=== PATIENT | female | born 1960 | race Caucasian/White ===

== ENCOUNTER 2020-11-17 16:27 | Outpatient (REF) | payer BC, SELFPAY ==
--- NOTE | ~2020-11-17 | CT_ITS ---
EXAMINATION: CT CHEST SCREENING CLINICAL INFORMATION: Lung cancer screening COMPARISON: Previous chest CT July 2019 TECHNIQUE: Multidetector volumetric CT imaging of the chest is performed without contrast using low dose technique. Additional 2D coronal and sagittal reformatted images and axial 3D maximum intensity projection (MIP) images are generated on the CT workstation. This CT examination was performed using dose optimization techniques as appropriate, variously including the following: *Automated exposure control *Adjustment of mA and/or kV according to patient size (this includes techniques or standardized protocols for targeted exams where dose is matched to indication/reason for exam; i.e. extremities or head) *Use of iterative reconstruction technique DLP: 55 mGy-cm FINDINGS: LUNGS: The small right pulmonary nodules are stable. There is new subsegmental atelectasis or linear scarring seen in the apical posterior segment of the left upper lobe, for example axial image 152 series 5. There is a new heterogeneous or semisolid left upper lobe nodule measuring 4 mm in the anterior segment of the left upper lobe axial image 2:15 series 5, coronal reconstructed image 20 sagittal reconstructed image 29. MEDIASTINUM: There is mild coronary artery calcification. There is evidence of atherosclerotic disease with calcification of the aorta. Mediastinum is otherwise normal. PLEURA: There is no pleural effusion. No pleural mass or thickening. AXILLA: No lymphadenopathy. UPPER ABDOMEN: Unremarkable OSSEOUS STRUCTURES: There are degenerative changes of the spine. There are postsurgical changes to the lower cervical spine. CT/CT lung screening IMPRESSION: Stable small right pulmonary nodules. New 4 mm heterogeneous or semisolid left upper lobe nodule. New linear scarring or subsegmental atelectasis in the left upper lobe. Atherosclerotic disease. ASSESSMENT: Lung-RADS category 2: Benign RECOMMENDATION: Annual low-dose chest CT follow-up recommended.
== END 2020-11-17 16:28 | disposition home or self-care (01) ==
LOC: HO.CT 16:27
PROVIDERS: PCP Internal Medicine; Visit Provider Physician Assistant Medical
DX: Z12.2 Encounter for screening for malignant neoplasm of respiratory organs (principal); Z87.891 Personal history of nicotine dependence
CPT/HCPCS: 71271

== ENCOUNTER → 2020-11-22 15:27 | Outpatient (BNVA) | payer BC, SELFPAY | PROVIDERS: PCP Internal Medicine; Visit Provider Hospitalist ==

== ENCOUNTER 2020-12-21 13:39 | Outpatient (REF) | payer BC, SELFPAY ==
--- NOTE | 2020-12-21 14:52 | PFT_ITS ---
INDICATION: Asthma/COPD. SPIROMETRY: The FEV1 to FVC 69% with an FEV1 of 2.71 L, which is 91% predicted, and an FVC of 3.95 L, which is 102% predicted. Post bronchodilator shows significant improvement of the FEV1 by 14%. The maximum voluntary ventilation 98% predicted. LUNG VOLUMES: Total lung capacity 118% predicted and residual volume 134% predicted. DIFFUSION CAPACITY: DLCO 59% predicted. COMPARISONS: None available. INTERPRETATION: There is an obstructive ventilatory defect consistent with mild COPD. There was a significant response to bronchodilators noted and evidence of small airways disease. Maximum voluntary ventilation within normal limits. The patient had a trend of hyperinflation and significant air trapping due to the COPD. In addition to that, there is a moderate diffusion impairment likely secondary to emphysema and other parenchymal lung conditions should be considered. Clinical correlation warranted. MD DYLAN Lopez/NOY / [id number]
== END 2020-12-21 13:40 | disposition home or self-care (01) ==
LOC: HO.RESP 13:39
PROVIDERS: PCP Internal Medicine; Visit Provider Hospitalist
DX: J44.9 Chronic obstructive pulmonary disease, unspecified (principal)
CPT/HCPCS: 94060; 94727; 94729

== ENCOUNTER 2022-02-26 15:28 | Outpatient (REF) | payer BC, SELFPAY ==
--- NOTE | ~2022-02-26 | CT_ITS ---
EXAMINATION: CT CHEST SCREENING CLINICAL INFORMATION: CT chest 11/17/2020 COMPARISON: CT chest 11/17/2020 TECHNIQUE: Multidetector volumetric CT imaging of the chest is performed without contrast using low dose technique. Additional 2D coronal and sagittal reformatted images and axial 3D maximum intensity projection (MIP) images are generated on the CT workstation. This CT examination was performed using dose optimization techniques as appropriate, variously including the following: *Automated exposure control *Adjustment of mA and/or kV according to patient size (this includes techniques or standardized protocols for targeted exams where dose is matched to indication/reason for exam; i.e. extremities or head) *Use of iterative reconstruction technique DLP: 55 mGy-cm FINDINGS: LUNGS: The lungs are well-expanded and clear of acute pneumonic consolidation. There is a 4 mm of the right lower lobe, axial image 272/6, new. Ground-glass nodule left upper lobe anterior segment measures 7 mm x 8 mm axial image 225/6, previously measured 4 mm and is slightly larger. There is no change in the micronodules from the previous exam. There is a 3 mm nodule in the right lower lobe anterior segment adjacent to the major fissure image 343/6. Minimal scarring/atelectasis of the posterior segment, left upper lobe is stable. MEDIASTINUM: The thyroid lobes are symmetrical and normal. The central trachea and the bronchi are widely patent. The heart size and the great vessels are of normal caliber. There is no pericardial effusion. No abnormal size mediastinal or hilar lymph nodes are seen. PLEURA: There is no pleural effusion. No pleural mass or thickening. AXILLA: No lymphadenopathy. UPPER ABDOMEN: Visualized liver, spleen, pancreas and bilateral adrenal glands are unremarkable. OSSEOUS STRUCTURES: No lytic or sclerotic process seen. CT/CT lung screening IMPRESSION: New 4 mm nodule right lower lobe. The ground-glass nodule of the left upper lobe has slightly increased in size. The rest of the micronodules seen previously and the 3 mm nodule right lower lobe adjacent to the major fissure, are stable. No abnormal mediastinal lymphadenopathy ASSESSMENT: Lung-RADS category 2: Benign RECOMMENDATION: Low-dose annual CT chest.
== END 2022-02-26 15:29 | disposition home or self-care (01) ==
LOC: HO.CT 15:28
PROVIDERS: Visit Provider Physician Assistant Medical
DX: Z12.2 Encounter for screening for malignant neoplasm of respiratory organs (principal); Z87.891 Personal history of nicotine dependence
CPT/HCPCS: 71271

== ENCOUNTER → 2022-04-06 10:20 | Outpatient (BNVA) | payer BC, SELFPAY | PROVIDERS: PCP Internal Medicine; Visit Provider Surgery | DX: R91.8 Other nonspecific abnormal finding of lung field (principal) | CPT/HCPCS: 99202 ==

== ENCOUNTER 2022-05-29 15:57 | Outpatient (REF) | payer BC, SELFPAY ==
--- NOTE | ~2022-05-29 | CT_ITS ---
EXAMINATION: CT CHEST SCREENING CLINICAL INFORMATION: Former smoker. Quit 5 years ago. 40 pack year history. COMPARISON: Previous CT most recent February 2022 TECHNIQUE: Multidetector volumetric CT imaging of the chest is performed without contrast using low dose technique. Additional 2D coronal and sagittal reformatted images and axial 3D maximum intensity projection (MIP) images are generated on the CT workstation. This CT examination was performed using dose optimization techniques as appropriate, variously including the following: *Automated exposure control *Adjustment of mA and/or kV according to patient size (this includes techniques or standardized protocols for targeted exams where dose is matched to indication/reason for exam; i.e. extremities or head) *Use of iterative reconstruction technique DLP: 57 mGy-cm FINDINGS: LUNGS: There is evidence of emphysema. There is a 7 x 12 mm groundglass attenuation left upper lobe nodule axial image 238 series 5. This is increased from 7 x 8 mm on most recent exam February 2022 and 4 mm on older exam from 2020. Other solid pulmonary nodules are stable, largest measuring 4 mm in the right lower lobe axial image 296 series 5. No new pulmonary nodule. No endobronchial or endotracheal lesion. Linear scarring or dependent atelectasis in the posterior segment of the left upper lobe axial image 166 series 5 stable. MEDIASTINUM: The mediastinum is normal. CORONARY ARTERY CALCIFICATION: None visualized on this study. PLEURA: There is no pleural effusion. No pleural mass or thickening. AXILLA: No lymphadenopathy. UPPER ABDOMEN: Unremarkable OSSEOUS STRUCTURES: Degenerative changes of the thoracic spine. Postsurgical changes to the lower cervical spine. CT/CT lung screen follow up IMPRESSION: Mild emphysema. Gradually increasing groundglass attenuation left upper lobe nodule now measuring 7 x 12 mm. Other smaller solid pulmonary nodules are stable. Mild coronary artery calcification. ASSESSMENT: Lung-RADS category 4. Suspicious. RECOMMENDATION: Low-dose chest CT follow-up in 3 months recommended.
== END 2022-05-29 15:58 | disposition home or self-care (01) ==
LOC: HO.CT 15:57
PROVIDERS: Visit Provider Physician Assistant Medical
DX: R91.8 Other nonspecific abnormal finding of lung field (principal)
CPT/HCPCS: 71250

== ENCOUNTER → 2022-06-15 10:07 | Outpatient (BNVA) | payer BC, SELFPAY | PROVIDERS: PCP Internal Medicine; Visit Provider Surgery | DX: R91.8 Other nonspecific abnormal finding of lung field (principal) | CPT/HCPCS: 99212 ==

== ENCOUNTER → 2022-11-27 13:59 | Outpatient (BNVA) | payer BC, SELFPAY | PROVIDERS: PCP Internal Medicine; Visit Provider Hospitalist | DX: Z13.89 Encounter for screening for other disorder (principal) ==

== ENCOUNTER 2023-04-26 15:19 | Outpatient (REF) | payer BC, SELFPAY ==
--- NOTE | 2023-04-26 15:58 | PFT_ITS ---
Forced vital capacity is 94%, FEV1 72%. FEV1/FVC ratio is 60. TRA82-58 36% and MVV 86%. Post bronchodilator therapy, there is marked improvement in FVC, FEV1, and MLN14-18 consistent with complete reversibility of the obstructive component. Total lung capacity 113%. Residual volume 130%. Diffusion capacity 52% CONCLUSION: Moderately severe obstructive airway disorder. There is significant improvement after bronchodilator therapy resulting in complete reversibility. These findings are consistent with bronchial asthma/COPD overlap syndrome. Clinical correlation recommended. MD SINTIA Higuera/MODL / [id number]
== END 2023-04-26 15:20 | disposition home or self-care (01) ==
LOC: HO.RESP 15:19
PROVIDERS: PCP Internal Medicine; Visit Provider Hospitalist
DX: J41.0 Simple chronic bronchitis (principal)
CPT/HCPCS: 94010; 94727; 94729

== ENCOUNTER → 2023-04-26 15:58 | Outpatient (BNV) | payer BC, SELFPAY | PROVIDERS: PCP Internal Medicine; Visit Provider Internal Medicine | DX: J43.9 Emphysema, unspecified (principal) | CPT/HCPCS: 94060; 94727; 94729 ==

== ENCOUNTER 2023-05-31 10:38 | Outpatient (AMB) | payer BC, SELFPAY ==
[2023-05-31 10:42] VITALS: PULSE 68; O2SAT 96; BMI 29.0
--- NOTE | 2023-05-31 10:42 | A.OFFVIS_ITS ---
Intake Vital Signs 05/31/23 10:42 Height 5 ft 8 in Weight 191 lb 1 oz BMI 29.0 Pulse 68 Pulse Source Pulse Oximeter Pulse Oximetry (%) 96 Oxygen Delivery Method Room Air Intake Visit Reasons: COPD Registered Nurses Required: No Allergies benzoin Allergy (Unknown, Uncoded 05/31/23 10:43) blisters doxycycline Allergy (Unknown, Uncoded 05/31/23 10:43) rash sporonox Allergy (Unknown, Uncoded 05/31/23 10:43) rash steri strip Allergy (Unknown, Uncoded 05/31/23 10:43) blisters HPI HPI Comments History of Present Illness Details The patient is a 63 y/o woman with a history of COPD. Apparently back in 2018 she developed worsening respiratory symptoms. She was given 3 courses of prednisone for COPD exacerbation. Then she was admitted to [facility]. After that she was evaluated by local manager fashion. She had pulmonary function studies demonstrating a mild obstructive ventilatory defect. She also had a mild diffusion impairment. She was placed initially on Symbicort and Spiriva. She does use the medicine at least once a day. She does get some hoarseness with the inhalers. We talked about an AeroChamber. Subsequently after that she did have daytime drowsiness and she underwent a sleep study. She did try CPAP but it was hard for her to tolerate and therefore she failed CPAP. She had a repeat sleep study and then ultimately had an oral appliance. On repeat study with 03/22/2022 the patient is here for a pulmonary follow-up visit. The patient overall continues to do well. She still has underlying dyspnea on exertion. She has been using Symbicort and she could not tolerate the Spiriva. The patient still would like to try to optimize her respiratory therapy. Therefore will send her breztri to the pharmacy. I also will give her a coupon card to see if that she can use this to decrease her copays. The patient also is taking part of the lung cancer screening program. We did look at her CT scan. It appears that she does have a interval growth in her ground-glass pulmonary nodule. The nodule appears to be completely homogeneous ground-glass. based on the fact that the nodule increase and she is taking part of the lung cancer screening program will go ahead and present throughout the conference. Will probably have to change her RADS score on her CT scan. Otherwise patient is without any complaints will likely follow up with a CT scan that are earlier time. 11/27/2022 The patient is here for a pulmo nary follow up visit. Overall the patient is doing well. Still has dyspnea on exertion. She feels is related to her weight. Her last PFTs demonstrate mild COPD. In addition, she did have a second opinion at [facility] thoracic surgery for her GG pulmonary nodules and she will like to f/u there if she needs surgery. Therefore, I will reorder her CT chest to be done at [facility] at the [facility]. Has been responding good to the Breztri. 05/31/2023 the patient is here for a pulm onary follow-up visit. The patient overall is doing well. She still having dyspnea on exertion. [id number] severity. We did review her PFTs demonstrating mild COPD. The patient will benefit from pulmonary a bili taken. I will put an order in. Although her work may get in the way of the in-person pulmonary rehabilitation. She does respond well to the inhalers. She will continue it at this time. She does need a rescue inhaler and I will make when available for her. The patient understands she has a significant response to bronchodilators and likely has an asthma phenotype. Patient also had a CT scan of the chest done at [facility] back in November 2022 demonstrating the persistent ground-glass nodular density in the left hemithorax. The patient is scheduled to have a repeat CT scan now on the fall. She will follow-up with the surgeon regarding that nodule. I am hopeful that the nodule either subsides or stay stable and that she does not need any further intervention. However, if the nodule becomes more subsolid or increases in size it should be resected. She does have the lung capacity to tolerate surgery based on her PFTs. She still has some daytime drowsiness. We had ordered a sleep study but she opted not having it at this point will going to go ahead and cancel it. She can continue with positional sleep therapy. PFSH Medical History COPD (chronic obstructive pulmonary disease) SULEIMAN (obstructive sleep apnea) Personal history of nicotine dependence Pulmonary nodules Vaping nicotine dependence, tobacco product Family History Father Lung cancer Social History Patient Tobacco Use Status: Former Tobacco user Tobacco use type: Cigarette Years Smoked: 30 Years Review of Systems Const Denies night sweats and Reports weight gain ENT Denies change in voice, Denies lip swelling, Denies mouth pain, Reports nasal congestion, Reports nasal discharge and Denies tongue swelling Card Denies chest pain and Reports dyspnea on exertion Resp Reports cough and Reports dyspnea on exertion GI Denies abdominal pain Musc Denies no additional complaints Neuro Denies Neuro-related abnormal movements Psych Denies no additional complaints Jose/Lymph Denies easy bleeding and Denies lymphadenopathy Aller/Immun Denies lip swelling and Denies tongue swelling Physical Exam Vital Signs: Last Vital Signs Pulse 68 05/31/23 10:42 Pulse Ox 96 05/31/23 10:42 Oxygen Delivery Method Room Air 05/31/23 10:42 BMI result Body Mass Index 29.0 Const General: alert Neck Neck: Yes normal visual inspection, Yes full ROM and Yes no lymphadenopathy Chest Chest palpation & inspection: normal inspection of the chest Resp Auscultation: diminished lung sounds Cardio Rate: regular rate Rhythm: regular rhythm Heart sounds: S1 normal heart sound present and S2 normal heart sound present GI Palpation (GI): Soft to palpation and nontender Auscultation: normal bowel sounds Skin General skin exam: rashes and/or lesions noted Extrem General: Yes no clubbing, cyanosis or edema Assessment & Plan Assessment & Plan (1) COPD (chronic obstructive pulmonary disease): Code(s): J44.9 - Chronic obstructive pulmonary disease, unspecified Qualifiers: COPD type: chronic bronchitis Chronic bronchitis type: simple Qualified Code(s): J41.0 - Simple chronic bronchitis (2) Pulmonary nodules: Code(s): R91.8 - Other nonspecific abnormal finding of lung field Plan continue Breztri MIKHAIL as needed CT chest at [facility] in the next few weeks F/U with Dr Ramires Pulmonary rehab F/U 6 months Orders: Orders Pulmonary Rehab Today J44.9 - Chronic obstructive pulmonary disease, unspecified Medications: Refilled albuterol sulfate 90 mcg/actuation 2 inhalations inhalation Q6H 30 days PRN 18 grams 12RF shortness of breath or wheezing J44.9 - Chronic obstructive pulmonary disease, unspecified Quality Reporting (2019) Adult ([facility] 138///) Smoking risk assessment performed?: Yes (Vaping) Patient Tobacco Use Status: Former Tobacco user Coding Level of Care Code Est Pt Level 4 (90574) Diagnoses Simple chronic bronchitis J41.0 COPD type: chronic bronchitis Chronic bronchitis type: simple Pulmonary nodules R91.8 Time Spent (min) 17
== END 2023-05-31 11:03 | disposition home or self-care (01) ==
PROVIDERS: PCP Internal Medicine; Visit Provider Hospitalist
DX: J41.0 Simple chronic bronchitis (principal); R91.8 Other nonspecific abnormal finding of lung field
CPT/HCPCS: 99214

== ENCOUNTER → 2023-05-31 10:38 | Outpatient (BNVA) | payer BC, SELFPAY | PROVIDERS: PCP Internal Medicine; Visit Provider Hospitalist | DX: J41.0 Simple chronic bronchitis (principal) ==

== ENCOUNTER 2024-01-10 11:23 | Outpatient (AMB) | payer BC, SELFPAY ==
--- NOTE | 2024-01-10 11:24 | MHC.OFFVIS ---
Vital Signs 01/10/24 11:25 Height 5 ft 8 in Weight 190 lb BMI 28.9 Pulse 66 Pulse Source Pulse Oximeter Pulse Oximetry (%) 97 Oxygen Delivery Method Room Air Intake Visit Reasons: copd [employer] Required: No Allergies benzoin Allergy (Unknown, Uncoded 01/10/24 11:26) blisters doxycycline Allergy (Unknown, Uncoded 01/10/24 11:26) rash sporonox Allergy (Unknown, Uncoded 01/10/24 11:26) rash steri strip Allergy (Unknown, Uncoded 01/10/24 11:26) blisters HPI Comments Details: The patient is a 63 y/o woman with a history of COPD. Apparently back in 2018 she developed worsening respiratory symptoms. She was given 3 courses of prednisone for COPD exacerbation. Then she was admitted to [facility]. After that she was evaluated by local mold sander. She had pulmonary function studies demonstrating a mild obstructive ventilatory defect. She also had a mild diffusion impairment. She was placed initially on Symbicort and Spiriva. She does use the medicine at least once a day. She does get some hoarseness with the inhalers. We talked about an AeroChamber. Subsequently after that she did have daytime drowsiness and she underwent a sleep study. She did try CPAP but it was hard for her to tolerate and therefore she failed CPAP. She had a repeat sleep study and then ultimately had an oral appliance. On repeat study with 03/22/2022 the patient is here for a pulmonary follow-up visit. The patient overall continues to do well. She still has underlying dyspnea on exertion. She has been using Symbicort and she could not tolerate the Spiriva. The patient still would like to try to optimize her respiratory therapy. Therefore will send her breztri to the pharmacy. I also will give her a coupon card to see if that she can use this to decrease her copays. The patient also is taking part of the lung cancer screening program. We did look at her CT scan. It appears that she does have a interval growth in her ground-glass pulmonary nodule. The nodule appears to be completely homogeneous ground-glass. based on the fact that the nodule increase and she is taking part of the lung cancer screening program will go ahead and present throughout the conference. Will probably have to change her RADS score on her CT scan. Otherwise patient is without any complaints will likely follow up with a CT scan that are earlier time. 11/27/2022 The patient is here for a pulmonary follow up visit. Overall the patient is doing well. Still has dyspnea on exertion. She feels is related to her weight. Her last PFTs demonstrate mild COPD. In addition, she did have a second opinion at [facility] thoracic surgery for her GG pulmonary nodules and she will like to f/u there if she needs surgery. Therefore, I will reorder her CT chest to be done at [facility] at the [facility] center. Has been responding good to the Breztri. 05/31/2023 the patient is here for a pulmonary follow-up visit. The patient overall is doing well. She still having dyspnea on exertion. [id number]-mr-mqsubcrq severity. We did review her PFTs demonstrating mild COPD. The patient will benefit from pulmonary a bili taken. I will put an order in. Although her work may get in the way of the in-person pulmonary rehabilitation. She does respond well to the inhalers. She will continue it at this time. She does need a rescue inhaler and I will make when available for her. The patient understands she has a significant response to bronchodilators and likely has an asthma phenotype. Patient also had a CT scan of the chest done at [facility] back in November 2022 demonstrating the persistent ground-glass nodular density in the left hemithorax. The patient is scheduled to have a repeat CT scan now on the fall. She will follow-up with the surgeon regarding that nodule. I am hopeful that the nodule either subsides or stay stable and that she does not need any further intervention. However, if the nodule becomes more subsolid or increases in size it should be resected. She does have the lung capacity to tolerate surgery based on her PFTs. She still has some daytime drowsiness. We had ordered a sleep study but she opted not having it at this point will going to go ahead and cancel it. She can continue with positional sleep therapy. 01/10/2024 the patient is here for pulmonary follow-up visit. He continues exertion. Ylfk-et-utkngulp severity. Although she does not use her inhaler as prescribed. She needs to start using at least in the morning to be able to get further bronchodilation. We did review her PFTs demonstrating significant response to bronchodilators and explained to her the importance of doing so to try due improve her exercise capacity. In addition to that she did have a CT scan of the chest at [facility] back in 06/17/2023 demonstrating that the ground-glass opacity that she had component appreciated. She is due for repeat CT scan 06/17/2024 [facility]. I which point she follow-up with the thoracic surgeon. [facility] Medical History COPD (chronic obstructive pulmonary disease) SULEIMAN (obstructive sleep apnea) Personal history of nicotine dependence Pulmonary nodules Vaping nicotine dependence, tobacco product Family History Father Lung cancer Social History Patient Tobacco Use Status: Former Tobacco user Tobacco use type: Cigarette Years Smoked: 30 Years Review of Systems Const Denies night sweats and Reports weight gain ENT Denies change in voice, Denies lip swelling, Denies mouth pain, Reports nasal congestion, Reports nasal discharge and Denies tongue swelling Card Denies chest pain and Reports dyspnea on exertion Resp Reports cough, Reports dyspnea on exertion and Reports wheezing GI Denies abdominal pain Musc Denies no additional complaints Neuro Denies Neuro-related abnormal movements Psych Denies no additional complaints Jose/Lymph Denies easy bleeding and Denies lymphadenopathy Aller/Immun Denies lip swelling, Denies tongue swelling and Reports wheezing Physical Exam Vital Signs: Last Vital Signs Pulse 66 01/10/24 11:25 Pulse Ox 97 01/10/24 11:25 Oxygen Delivery Method Room Air 01/10/24 11:25 BMI result Body Mass Index 28.9 Const General: alert Neck Neck: Yes normal visual inspection, Yes full ROM and Yes no lymphadenopathy Chest Chest palpation & inspection: normal inspection of the chest Resp Effort & Inspection: prolonged expiratory phase Auscultation: rhonchi and diminished lung sounds Cardio Rate: regular rate Rhythm: regular rhythm Heart sounds: S1 normal heart sound present and S2 normal heart sound present GI Palpation (GI): Soft to palpation and nontender Auscultation: normal bowel sounds Skin General skin exam: rashes and/or lesions noted Extrem General: Yes no clubbing, cyanosis or edema Quality Reporting (2019) Adult ([facility] 138//) Smoking risk assessment performed?: Yes (Vaping) Patient Tobacco Use Status: Former Tobacco user Assessment & Plan Assessment & Plan (1) COPD (chronic obstructive pulmonary disease): Code(s): J44.9 - Chronic obstructive pulmonary disease, unspecified Category: Medical Qualifiers: COPD type: chronic bronchitis Chronic bronchitis type: simple Qualified Code(s): J41.0 - Simple chronic bronchitis (2) Pulmonary nodules: Code(s): R91.8 - Other nonspecific abnormal finding of lung field Category: Medical Plan continue Coy ELIZONDO as needed CT chest at [facility] in 06/21 F/U with Dr Ramires Pulmonary rehab F/U 6-8 months Coding Level of Care Code Est Pt Level 4 (48274) Diagnoses Simple chronic bronchitis J41.0 COPD type: chronic bronchitis Chronic bronchitis type: simple Pulmonary nodules R91.8 Time Spent (min) 17
[2024-01-10 11:25] VITALS: PULSE 66; O2SAT 97; BMI 28.9
== END 2024-01-10 11:52 | disposition home or self-care (01) ==
PROVIDERS: PCP Internal Medicine; Visit Provider Hospitalist
DX: J41.0 Simple chronic bronchitis (principal); R91.8 Other nonspecific abnormal finding of lung field
CPT/HCPCS: 99214

== ENCOUNTER → 2024-01-10 11:23 | Outpatient (BNVA) | payer BC, SELFPAY | PROVIDERS: PCP Internal Medicine; Visit Provider Hospitalist ==

== ENCOUNTER 2024-10-30 11:07 | Outpatient (AMB) | payer BC, SELFPAY ==
[2024-10-30 11:15] VITALS: BP 134/82; PULSE 73; O2SAT 97; BMI 30.3
--- NOTE | 2024-10-30 11:15 | A.OFFVIS_ITS ---
Vital Signs 10/30/24 11:15 Height 5 ft 8 in Weight 199 lb 8.293 oz BMI 30.3 BP 134/82 Blood Pressure Location Rt brachial Position Sitting Pulse 73 Pulse Source Pulse Oximeter Pulse Oximetry (%) 97 Oxygen Delivery Method Room Air Intake Visit Reasons: COPD Allergies benzoin Allergy (Unknown, Uncoded 01/10/24 11:26) blisters doxycycline Allergy (Unknown, Uncoded 01/10/24 11:26) rash sporonox Allergy (Unknown, Uncoded 01/10/24 11:26) rash HPI Comments Details: The patient is a 64 y/o woman with a history of COPD. Apparently back in 2018 she developed worsening respiratory symptoms. She was given 3 courses of prednisone for COPD exacerbation. Then she was admitted to [facility]. After that she was evaluated by local valve inserter. She had pulmonary function studies demonstrating a mild obstructive ventilatory defect. She also had a mild diffusion impairment. She was placed initially on Symbicort and Spiriva. She does use the medicine at least once a day. She does get some hoarseness with the inhalers. We talked about an AeroChamber. Subsequently after that she did have daytime drowsiness and she underwent a sleep study. She did try CPAP but it was hard for her to tolerate and therefore she failed CPAP. She had a repeat sleep study and then ultimately had an oral appliance. On repeat study with 03/22/2022 the patient is here for a pulmonary follow-up visit. The patient overall continues to do well. She still has underlying dyspnea on exertion. She has been using Symbicort and she could not tolerate the Spiriva. The patient still would like to try to optimize her respiratory therapy. Therefore will send her breztri to the pharmacy. I also will give her a coupon card to see if that she can use this to decrease her copays. The patient also is taking part of the lung cancer screening program. We did look at her CT scan. It appears that she does have a interval growth in her ground-glass pulmonary nodule. The nodule appears to be completely homogeneous ground-glass. based on the fact that the nodule increase and she is taking part of the lung cancer screening program will go ahead and present throughout the conference. Will probably have to change her RADS score on her CT scan. Otherwise patient is without any complaints will likely follow up with a CT scan that are earlier time. 11/27/2022 The patient is here for a pulmonary follow up visit. Overall the patient is doing well. Still has dyspnea on exertion. She feels is related to her weight. Her last PFTs demonstrate mild COPD. In addition, she did have a second opinion at [facility] thoracic surgery for her GG pulmonary nodules and she will like to f/u there if she needs surgery. Therefore, I will reorder her CT chest to be done at [facility] at the [facility]. Has been responding good to the Breztri. 05/31/2023 the patient is here for a pulmonary follow-up visit. The patient overall is doing well. She still having dyspnea on exertion. Efex-fe-zhjbpqcm severity. We did review her PFTs demonstrating mild COPD. The patient will benefit from pulmonary a bili taken. I will put an order in. Although her work may get in the way of the in-person pulmonary rehabilitation. She does respond well to the inhalers. She will continue it at this time. She does need a rescue inhaler and I will make when available for her. The patient understands she has a significant response to bronchodilators and likely has an asthma phenotype. Patient also had a CT scan of the chest done at [facility] back in November 2022 demonstrating the persistent ground-glass nodular density in the left hemithorax. The patient is scheduled to have a repeat CT scan now on the fall. She will follow-up with the surgeon regarding that nodule. I am hopeful that the nodule either subsides or stay stable and that she does not need any further intervention. However, if the nodule becomes more subsolid or increases in size it should be resected. She does have the lung capacity to tolerate surgery based on her PFTs. She still has some daytime drowsiness. We had ordered a sleep study but she opted not having it at this point will going to go ahead and cancel it. She can continue with positional sleep therapy. 01/10/2024 the patient is here for pulmonary follow-up visit. He continues exertion. Ymzq-hm-lgkqjhjt severity. Although she does not use her inhaler as prescribed. She needs to start using at least in the morning to be able to get further bronchodilation. We did review her PFTs demonstrating significant response to bronchodilators and explained to her the importance of doing so to try due improve her exercise capacity. In addition to that she did have a CT scan of the chest at [facility] back in 06/17/2023 demonstrating that the ground-glass opacity that she had component appreciated. She is due for repeat CT scan 06/17/2024 [facility]. I which point she follow-up with the thoracic surgeon. 10/30/2024 the patient is here for a pulmonary follow-up visit. She has been sick now for a couple weeks. Started like a viral syndrome and now she has had this cough that just will not go away. She sometimes expectorating some yellow phlegm. Although is difficult for her to do so. She has continued to use her respiratory inhalers with only partial improvement of her symptoms. Denies any fevers or chills. She does have some rhonchi and wheezing on exam. Her cardiac exam is stable. The patient will go ahead and continue her respiratory therapy. She has an old nebulizer and I did provide her tubing in order for her to be able to use her nebulizer to help her with her COPD exacerbation. In the meantime will go ahead and treat her for an acute bronchitis infection. She did have a CT scan of the chest in May 2024 which is reassuring with a did measure the ground-glass nodular density in the left upper lobe has decreased in size some. Otherwise still needs follow-up and she is scheduled to have a repeat CAT scan 05/30/2025. Will plan to follow-up in a year's time. If she has any issues prior to that she will call for an earlier assessment. PFSH Medical History COPD (chronic obstructive pulmonary disease) SULEIMAN (obstructive sleep apnea) Personal history of nicotine dependence Pulmonary nodules Vaping nicotine dependence, tobacco product Family History Father Lung cancer Social History Patient Tobacco Use Status: Former Tobacco user Tobacco use type: Cigarette Years Smoked: 30 Years Review of Systems Const Denies night sweats and Reports weight gain ENT Denies change in voice, Denies lip swelling, Denies mouth pain, Reports nasal congestion, Reports nasal discharge and Denies tongue swelling Card Denies chest pain and Reports dyspnea on exertion Resp Reports cough, Reports dyspnea on exertion and Reports wheezing GI Denies abdominal pain Musc Denies no additional complaints Neuro Denies Neuro-related abnormal movements Psych Denies no additional complaints Jose/Lymph Denies easy bleeding and Denies lymphadenopathy Aller/Immun Denies lip swelling, Denies tongue swelling and Reports wheezing Physical Exam Vital Signs: Last Vital Signs Pulse 73 10/30/24 11:15 BP 134/82 10/30/24 11:15 Pulse Ox 97 10/30/24 11:15 Oxygen Delivery Method Room Air 10/30/24 11:15 BMI result Body Mass Index 30.3 Const General: alert Neck Neck: Yes normal visual inspection, Yes full ROM and Yes no lymphadenopathy Chest Chest palpation & inspection: normal inspection of the chest Resp Effort & Inspection: prolonged expiratory phase Auscultation: diminished lung sounds Cardio Rate: regular rate Rhythm: regular rhythm Heart sounds: S1 normal heart sound present and S2 normal heart sound present GI Palpation (GI): Soft to palpation and nontender Auscultation: normal bowel sounds Skin General skin exam: rashes and/or lesions noted Extrem General: Yes no clubbing, cyanosis or edema Assessment & Plan Assessment & Plan (1) COPD (chronic obstructive pulmonary disease): Code(s): J44.9 - Chronic obstructive pulmonary disease, unspecified Category: Medical Qualifiers: COPD type: COPD with acute exacerbation Qualified Code(s): J44.1 - Chronic obstructive pulmonary disease with (acute) exacerbation (2) Pulmonary nodules: Code(s): R91.8 - Other nonspecific abnormal finding of lung field Category: Medical (3) Tracheobronchitis: Code(s): J40 - Bronchitis, not specified as acute or chronic Category: Medical Plan Zpack Prednisone taper Cough medicine continue Breztri MIKHAIL as needed CT chest at [facility] in 06/22 F/U with Dr Ramires Pulmonary rehab F/U 2-3 months Medications: New prednisone PO daily; Take 2 tabs daily x 5 days, then 1 tablet daily x 5 days 15 tabs 0RF 10 days albuterol sulfate 2.5 mg (3 mL) inhalation Q6H PRN 180 mL 11RF shortness of doreen ath or wheezing 30 days azithromycin 500 mg PO DAILY 5 tabs 0RF 5 days Refilled albuterol sulfate 90 mcg/actuation 2 inhalations inhalation Q6H PRN 18 grams 11RF shortness of breath or wheezing 30 days J44.9 - Chronic obstructive pulmonary disease, unspecified Coding Level of Care Code Est Pt Level 4 (81650) Diagnoses Chronic obstructive pulmonary disease with acute exacerbation J44.1 COPD type: COPD with acute exacerbation Pulmonary nodules R91.8 Tracheobronchitis J40
--- OUTSIDE RECORDS SUMMARY | 2024-10-30 12:57 | XMS_ITS | Encounter Summary ---
Author Organization [employer] [facility] Address [address] [place] [address] [address] [place] [address] Care Team Providers Care President Sales And Marketing Name Role Phone Nora Mary MD Primary Care Provider [phone] Encounter Details Date Type Department Care Team (Late st Contact Info) Description 08/21/2022 Abstract [facility] [address] [place] [address] Yue Streeter, SATISH [address] [place] [address] Social History Tobacco Use Types Packs/Day Years Used Date Smoking Tobacco: Never Assessed Depression Answer Date Recorded Patient Health Questionnaire-2 Score 0 08/24/2022 Comments Unknown Sex and Gender Information Value Date Recorded Sex Assigned at Female 08/23/2022 9:26 AM EST Legal Sex Female 8:36 PM EDT Gender Identity Female 08/23/2022 9:26 AM EST Sexual Orientation Lesbian or Lindsay 08/23/2022 9: 26 AM EST COVID-19 Exposure Response Date Recorded In the last 10 days, have yo u been in contact with someone who was confirmed or suspected to have Coronavirus/COVID-19? No / Unsure 08/24/2022 9:16 AM EST documented as of this encounter Plan of Treatment Upcoming Encounters Date Type Department Care Team (Late st Contact Info) Description 11/13/2024 11:00 AM EDT Office Visit [facility] [address] [place] [address] Nora Mary MD [address] [place] [address] documented as of this encounter Procedures Procedure Name Priority Date/Time Associated Diagnosis Comments MAMMOGRAPHY Routine 07/03/2022 HEMOGLOBIN A1C Routine 06/26/2022 PAP/HPV Routine 06/03/2018 COLONOSCOPY Routine 02/07/2017 documented in this encounter Results * Mammography (07/03/2022) Pathologist Replaced by [facility] Mammogram BI RADS: 2 Benign Anatomical Region Laterality Modality Other [facility] Provider HEALTH MAINTENANCE Final Result * Hemoglobin A1c (06/26/2022) [facility] Hemoglobin A1C 5.4 4.0 - 6.0 % Blood Venous blood specimen / Unknown [facility] Provider LAB BLOOD ORDERABLES Fani l Result * Pap Smear (06/03/2018) Pathologist Replaced by [facility] Pap smear Pap negative. HPV negative. [facility] Provider HEALTH MAINTENANCE Final Result * Colonoscopy (02/07/2017) [facility] Colonoscopy 5 mm polyp at the recto-sigmoid colon. Internal hemrrhoids. [facility] Provider HEALTH MAINTENANCE Final Result documented in this encounter Visit Diagnoses Not on filedocumented in this encounter Care Teams President Sales And Marketing Relationship Specialty Start Date End Date Nora Mary MD [address] [place] [id number] PCP - General Internal Medicine 08/21/22 documented as of this encounter
--- OUTSIDE RECORDS SUMMARY | 2024-10-30 12:57 | XMS_ITS | Encounter Summary ---
Author Organization [employer] Address [address] [place] [address] [address] [place] [address] Care Team Providers Care Mail Processor Name Role Phone Nora Mary MD Primary Care Provider [phone] Reason for Visit * Reason Onset Date Comments Med Refill 10/12/2024 Encounter Details Date Type Department Care Team (Late st Contact Info) Description 10/12/2024 Refill [facility] [address] [place] [address] Nora Mary MD [address] [place] [address] Social History Tobacco Use Types Packs/Day Years Used Date Smoking Tobacco: Former Cigarettes Smokeless Tobacco: Never Comments:Patient Vapes prefi lled cartridges the [employer] brand vape Alcohol Use Standard Drinks/Week Comments Yes 7 (1 standard drink = 0.6 oz pur e alcohol) couple beers at night Alcohol Answer Date Recorded How often do you have a drink containing alcohol ? 0 05/11/2024 How many drinks containing a lcohol do you have on a typical day when you are drinking? 0 05/11/2024 How often do you have six or more drinks on one occasion? 0 05/11/2024 Housing Stability Answer Date Recorded What is your housing situation today? I have geoff steven 09/24/[address] you li ve. Do you have problems with any of the following? None of the above 09/24/2023 Food Insecurity Answer Date Recorded Within the past 12 months, y ou worried that your food would run out before you got money to buy more: Never True 09/24/2023 Within the past 12 months,th e food you bought just didn't last and you didn't have enough money to get more: Never True Transportation Answer Date Recorded In the past 12 months, has l ack of transportation kept you from medical appts, meetings, work or from getting things needed for daily living? No 09/24/2023 Intimate Partner Violence Answer Date R ecorded Within the last year, have y ou been afraid of your partner or ex-partner? 2 05/11/2024 Within the last year, have y ou been humiliated or emotionally abused in other ways by your partner or ex-partner? 2 Within the last year, have y ou been kicked, hit, slapped, or otherwise physically hurt by your partner or ex-partner? 2 05/11/2024 Within the last year, have y ou been raped or forced to have any kind of sexual activity by your partner or ex-partner? 2 05/11/2024 Utilities Answer Date Recorded In the past 12 months, has t he electric, gas, oil or water company threatened to shut off services in your home? No 09/24/2023 Depression Answer Date Recorded Patient Health Questionnaire-2 Score 0 09/24/2023 Internet Access Answer Date Recorded Internet Access Q1 Yes 05/11/2024 Internet Access Q2 I do not want or need it 04/28 Education Answer Date Recorded What is the highest level of school you have completed or the highest degree you have received? 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
--- OUTSIDE RECORDS SUMMARY | 2024-10-30 12:58 | XMS_ITS | Encounter Summary ---
Author Organization [employer] Address [address] [facility] [address] [place] [address] Care Team Providers Care Public Records Officer Name Role Phone Nora Mary MD Primary Care Provider [phone] Encounter Details Date Type Department Care Team (Late st Contact Info) Description 05/19/2024 Telephone [facility] Information Management [address] [place] [address] Nora Mary MD [address] [place] [address] Social History Tobacco Use Types Packs/Day Years [...] Description 11/13/2024 11:00 AM EDT Office Visit [facility] [address] [place] [address] Nora Mary MD [address] [place] [address] documented as of this encounter Visit Diagnoses Not on filedocumented in this encounter Care Teams Public Records Officer Relationship Specialty Start Date End Date Nora Mary MD [address] [place] [id number] PCP - General Internal Medicine 08/21/22 documented as of this encounter
--- OUTSIDE RECORDS SUMMARY | 2024-10-30 12:58 | XMS_ITS | Clinical Summary ---
Author Organization [employer] Address [address] [facility] [address] [place] [address] Care Team Providers Care Math And Physics Instructor Name Role Phone Nora Mary MD Primary Care Provider [phone] Allergies Active Allergy Reactions Criticality Noted Date Comments Doxycycline Rash Low 08/15/2022 Itraconazole Rash Low 08/15/2022 Other reaction(s): Unknown Other 11/01/2022 Other reaction(s): steri-strips Pollen Extract 09/24/2023 Other Reaction(s): steri-strips Prochlorperazine High 12/09/2017 Other reaction(s): Other (See Comments) bradycardia Medications albuterol 108 (90 Base) MCG/ACT inhaler TAKE 2 PUFFS EVERY 6 HOURS NEEDED FOR SHORTNESS OF BREATH OR WHEEZING FOR 30 DAYS 03/27/20 22 Active Breztri Aerosphere 160-9-4.8 MCG/ACT aerosol TAKE 2 PUFFS BY MOUTH TWICE A DAY FOR 30 DAYS 07/10/20 22 Active busPIRone (Buspar) 10 MG tabletIndicatio ns:Other specified anxiety disorders TAKE 1 TABLET BY MOUTH TWICE A DAY 180 tablet 1 07/08/20 23 Active buPROPion XL (Wellbutrin XL) 150 MG 24 hr tablet TAKE 1 TABLET BY MOUTH EVERY DAY IN THE MORNING 90 tablet 1 01/29/20 24 Active famotidine (Pepcid) 20 MG tablet Take 10 mg by mouth. 08/16/19 23 Active losartan (Cozaar) 25 MG tabletIndicatio ns:Primary hypertension Take 1 tablet (25 mg) by mouth Once per day. 90 tablet 3 05/11/20 24 025 Active sertraline (Zoloft) 25 MG tabletIndicatio ns:Other specified anxiety disorders TAKE 1 TABLET BY MOUTH EVERY DAY 90 tablet 1 09/21/19 25 Active hydroCHLOROthia zide (Microzide) 12.5 MG capsule TAKE 1 CAPSULE BY MOUTH EVERY DAY 90 capsule 3 09/30/19 25 Active diazePAM (Valium) 5 MG tabletIndicatio ns:Migraine without aura and without status migrainosus, not intractable Take 1 tablet (5 mg) by mouth if needed for anxiety. 30 tablet 10/13/19 25 Active butalbital-acet aminophen-caffe ine 50-325-40 MG tabletIndicatio ns:Migraine without aura and without status migrainosus, not intractable Take 1 tablet by mouth every 4 (four) hours if needed for headaches. Use no more than 5/day, 10/week, 30/month. 40 tablet 10/13/19 25 025 Active diazePAM (Valium) 5 MG tablet Take 1 tablet (5 mg) by mouth if needed for anxiety. 30 tablet 05/23/20 24 025 Discontinued(Re order (will not trigger notification to Pharmacy)) Active Problems Problem Noted Date Diagnosed Date Acute bacterial rhinosinusitis 11/21/2023 Assessment & Plan (11/21/2023 2:45 PM EDT): Pt has been having >2w hx of nasal congestion, sore throat (initially, no longer has it), productive cough, head congestion, sneezing, and runny nose. She has been doing nasal saline spray, Mucinex (helping a little), Tessalon perles, all with little relief. She has been taking Tylenol and Motrin for body aches. She has been doing a humidifier by the side of her bed. She denies any fever or chills but does endorse some body aches at night before bed. She is coughing up some phlegm, likely from post nasal drip. She went to last week and they diagnosed her with an acute viral resp illness. They endorsed saline spray, humidifier, Mucinex, drinking plenty of water, etc. Pt states she is coming in today because the symptoms are continuing with very little relief. The pt has a hx of COPD and asthma; she states she has not been having any excerbation of either condition through this. She is using her Breztri regularly and Albuterol as needed. She denies any CP/diff breathing/shortness of breath. She does say that sometimes she has slight shortness of breath with coughing, but only then. Discussed that due to the length of time of symptoms and her significant resp history we will treat her with an abx. Discussed with her that Augmentin would be best; she mentioned a Zpack and we discussed that it is not appropriate tx for sinus infections. We discussed continuing with the saline spray, Mucinex, etc. We discussed that she should start feeling better about 24-48h after starting the Augmentin. We discussed that if she is not feeling better by Saturday, to reach back out to us and we will need to further testing/imaging. Discussed increased fluid intake, soft foods, etc. Discussed if she gets CP/diff breathing/shortness of breath, etc, she needs to go to the ER. Follow up as needed. Acute COVID-19 07/19/2023 Assessment & Plan (07/19/2023 8:51 PM EST): Pt presents today via audio telehealth for consideration of Paxlovid for COVID 19, would like to start this as just tested positive today and concerned about trying to shorten symptoms, holiday coming up. Home test postive today for COVID 19 but greatest symptom is very sore throat. Encouraged to consider urgent care for swab for both strep and influenza too. States is up to date on her COVID 19 and influenza vaccines and RSV vaccine. Self care including TID and at HS warm water or warm salt water gargles encouraged, R/B/A of Paxlovid reviewed and pt would like to start this medication, sent via e rx to her pharmacy this evening and states will brick picker and start in the a.m. Aware to call or present to urgent care if symptoms do not imrpove with self care and Paxlovid, no further questions/concerns at call conclusion. History of breast cancer 08/24/2022 Overview (08/24/2022): Sees Dr. Dawkins Alcohol abuse 08/15/2022 Carcinoma in situ of breast 08/15/2022 COPD (chronic obstructive pulmonary disease) Overview (08/24/2022): Sees Dr. Hatch. On a new inhaler working better! Depression with anxiety 08/15/2022 High cholesterol 08/15/2022 Hypertension 08/15/2022 Leg cramps 08/15/2022 Memory loss 08/15/2022 Migraine without aura and wi thout status migrainosus, not intractable 08/15/2022 Moderate persistent asthma with acute exacerbati on 08/15/2022 Nicotine dependence 08/15/2022 Obesity 08/15/2022 Pulmonary nodule 08/15/2022 Overview (08/24/2022): Sees Dr. Ramires Sciatica 08/15/2022 Shoulder pain, left 08/15/2022 Sleep apnea 08/15/2022 Tinnitus of both ears 08/15/2022 Essential hypertension 12/09/2017 Overview (08/24/2022): Last Assessment & Plan: Continue HCTZ Chronic obstructive pulmonary disease 12/09/2017 Overview (08/24/2022): Last Assessment & Plan: Pt states she quit tobacco use in May 2017. She had PFTs done about 2 years ago which noted mod COPD. She has been on Spiriva and proair but has not seen a heating and ventilation engineer. Continue proair Continue spiriva pulm consult Breast cancer 12/09/2017 Overview (08/24/2022): Last Assessment & Plan: patient with a history of breast cancer status post lumpectomy with radiation and is currently on tamoxifen. She follows with Dr. Dawkins at [facility]. She regularly gets scheduled mammograms. - Continue tamoxifen Anxiety 12/09/2017 Overview (08/24/2022): Last Assessment & Plan: Continue zoloft Obstructive sleep apnea syndrome 01/19/2011 Overview (08/24/2022): Obstructive Sleep Apnea Resolved Problems Problem Noted Date Diagnosed Date Resolved Date Anxiety 08/15/2022 08/24/2022 Encounters Date Type Department Care Team Description 10/12/[address] [address] Nora Mary MD 10/12/[address] [address] Princess Thornton MD Migraine without aura and without status migrainosus, not intractable; Depression with anxiety 09/29/[address] [address] Nora Mary MD 09/21/[address] [address] Nora Mary MD Other specified anxiety disorders 08/07/2024 11:00 AM EST Office Visit [address] [address] Nora Mary MD Right foot pain (Primary Dx); BMI 31.0-31.9,adult; Obstructive sleep apnea syndrome; Cervical radiculopathy 08/07/2024 Travel from Last 3 Months Immunizations Name Administration Dates Next Due Influenza, IIV3, injectable 05/23/2017 Influenza, Split (incl. 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 on file Not on file Not on file Last Filed Vital Signs Vital Sign Reading Time Taken Comments Blood Pressure 120/76 08/07/2024 11:02 AM EST Pulse 82 08/07/2024 11:02 AM EST Temperature 36.7 ??C (98 ??F) 08/07/2024 11:02 AM EST Respiratory Rate 16 09/24/2023 3:36 PM EST Oxygen Saturation 96% 08/07/2024 11:02 AM EST Inhaled Oxygen Concentration - - Weight 89.8 kg (198 lb) 08/07/2024 11:02 AM EST Height 170.2 cm (5' 7 ) 05/11/2024 8:50 AM EDT Body Mass Index 31.01 05/11/2024 8:50 AM EDT Plan of Treatment Upcoming Encounters Date Type Department Care Team (Late st Contact Info) Description 11/13/2024 11:00 AM EDT Office Visit [place] [facility] [address] [place] [address] Nora Mary MD [address] [place] [address] Health Maintenance Due Date Last Done Comments CT Colonography 1962 FIT DNA/Cologuard 1962 FIT 1962 FOBT 1962 HIV Screening 1962 Sigmoidoscopy 1962 Hepatitis C Screening 1980 HPV/Cotest 1992 Pneumococcal Vaccine: 50+ Years (2 of 2 - PCV) 01/08/2016 01/07/2015 Cervical Cancer Screening 06/03/2021 Pap Smear 06/03/2021 06/03/2018 RSV Patients and Patients Aged 60 years or older (1 - Risk 60-74 years 1-dose series) 2022 Mammogram 07/03/2023 07/03/2022, 04/29/2018 Influenza Vaccine (#1) 2024 7, 05/17/2015, 03/29/2014, Additional history exists Depression Screening 09/24/2024 09/24/2023, 09/24/19 SDOH Screening 09/24/2024 09/24/2023 Alcohol/Substance Use Screening 05/11/2025 05/11/2024 Tobacco Screening 08/07/2025 08/07/2024 Colonoscopy 02/07/2027 02/07/2017, 01/26, 09/10/2013 Colorectal Cancer Screening 02/07/2027 Lipid Panel 06/26/2027 06/26/2022, 05/30, 06/28/2021 DTaP/Tdap/Td Vaccines (3 - Td or Tdap) 04/21/2030 04/21/2020, 10/10/2008, 10/10/2008 Zoster Vaccines Completed 01/19/2023, 09/21/2022 COVID-19 Vaccine Completed 04/02/2024, , 06/16/2022, Additional history exists HIB Vaccines Aged Out No longer eligi ble based on patient's age to complete this topic HPV Vaccines Aged Out No longer eligi ble based on patient's age to complete this topic Hepatitis A Vaccines Aged Out No long er eligible based on patient's age to complete this topic Hepatitis B Vaccines Aged Out No long er eligible based on patient's age to complete this topic IPV Vaccines Aged Out No longer eligi ble based on patient's age to complete this topic Meningococcal Vaccine Aged Out No jose seth eligible based on patient's age to complete this topic RSV under 20 months Aged Out No longe r eligible based on patient's age to complete this topic Rotavirus Vaccines Aged Out No longer eligible based on patient's age to complete this topic Procedures Procedure Name Priority Date/Time Associated Diagnosis Comments XR HIPS BILATERAL 3 OR 4 VIEWS WITH OR WITHOUT PELVIS Routine 10/22/2024 12:14 PM EDT Bilateral hip pain HM MAMMOGRAPHY Routine 07/03/2022 LIPID PANEL, STANDARD Routine 06/26/2022 PAP/HPV Routine 06/03/2018 COLONOSCOPY Routine 02/07/2017 from Last 3 Months or Most Recently Relevant to Health Maintenance Results * XR Hips Bilateral 3 or 4 Views with or without Pelvis (10/22/2024 12:14 PM EDT) Anatomical Region Laterality Modality Lower Extremities, Hip Bilateral Radiograp hic Imaging 10/22/2024 12:1 4 PM EDT Narrative 10/23/2024 8:18 AM EDT AP pelvis and bilateral hips 5 views each dated September 20162024. No prior studies are available. HISTORY: Pain. FINDINGS: These examinations show no evidence of fracture or dislocation. Joint spaces are fairly well-preserved. Only the most minimal subchondral sclerosis is demonstrated. IMPRESSION: Minimal degenerative changes. No evidence of fracture or dislocation. Thank you for allowing me to participate in the care of this patient. WSN: [id number] Ordering Physician: Nora Mary Dictated By: ?Ramses Duran MD Dictated Date/Time: ?10/23/24 8:15 am Reviewed By: ?Ramses Duran MD Signed By: ? Ramses Duran MD Signed Date/Time: ? 10/23/24 8:15 am Transcribed By: ? CSB Transcribed Date/Time: ?10/23/24 8:15 am Procedure Note [place], Image - 10/23/2024 AP pelvis and bilateral hips 5 views each dated September 20162024. Noprior studies are available. HISTORY: Pain. FINDINGS: These examinations show no evidence of fracture or dislocation.Joint spaces are fairly well-preserved. Only the most minimal subchondralsclerosis is demonstrated. IMPRESSION: Minimal degenerative changes. No evidence of fracture or dislocation. Thank you for allowing me to participate in the care of this patient. WSN: [id number] Ordering Physician: Nora Mary Dictated By: Ramses Duran MD Dictated Date/Time: 10/23/24 8:15 am Reviewed By: Ramses Duran MD Signed By: Ramses Duran MD Signed Date/Time: 10/23/24 8:15 am Transcribed By: CSB Transcribed Date/Time: 10/23/24 8:15 am Result [facility] Nora Mary MD IMG XR PROCEDURES Final Result * Mammography (07/03/2022) Pathologist [facility] Mammogram BI RADS: 2 Benign Anatomical Region Laterality Modality Other Result [facility] [employer] [employer] Final Result * (ABNORMAL) Lipid Panel, Standard (06/26/2022) [facility] Triglycerides 186(A) 40 - 160 mg/dL Comment:patient not fasting Cholesterol 201(A) 0 - 200 mg/dL HDL Cholesterol 69 35 - 70 mg/dL LDL Cholesterol 95 mg/dL Blood Venous blood specimen / Unknown Result [facility] LAB BLOOD ORDERABLES Fani l Result * Pap Smear (06/03/2018) Pathologist [facility] Pap smear Pap negative. HPV negative. [facility] [employer] [employer] Final Result * Colonoscopy (02/07/2017) [facility] Colonoscopy 5 mm polyp at the recto-sigmoid colon. Internal hemrrhoids. [facility] [employer] Final Result from Last 3 Months or Most Recently Relevant to Health Maintenance Insurance [facility] [employer] Care Teams Math And Physics Instructor Relationship Specialty Start Date End Date Nora Mary MD [address] [place] [id number] PCP - General Internal Medicine 08/21/22
== END 2024-10-30 11:45 | disposition home or self-care (01) ==
LOC: HO.HPS 11:07
PROVIDERS: PCP Internal Medicine; Visit Provider Hospitalist
DX: J44.1 Chronic obstructive pulmonary disease with (acute) exacerbation (principal); R91.8 Other nonspecific abnormal finding of lung field; J40 Bronchitis, not specified as acute or chronic
CPT/HCPCS: 99214